=== PATIENT | male | born 2000 | race American Indian/Alaskan Native ===

== ENCOUNTER 2023-05-08 21:25 | Emergency (ER) | payer OTHER ==
[~2023-05-08] VITALS: Ht 182.9 cm; Wt 86.4 kg
[2023-05-08 21:43] VITALS: BP 132/68; TEMP 98.4
[2023-05-08] MEDS ORDERED: HYDROcodone/Acetaminophen 7.5-325 MG TAB PO ONE (22:15)
[2023-05-08] MEDS ORDERED: FLEXERIL 1010 MG/TAB PO (23:13)
[2023-05-08] MEDS ORDERED: Home Cyclobenzaprine 10 MG #2 TABS/PACK PO ONE (23:15)
[2023-05-09 02:28] VITALS: PULSE 66
== END 2023-05-09 02:28 | disposition home or self-care (01) ==
LOC: COL.ER 21:25
DX: S29.9XXA Unspecified injury of thorax, initial encounter (principal); F17.220 Nicotine dependence, chewing tobacco, uncomplicated; X50.1XXA Overexertion from prolonged static or awkward postures, initial encounter; Y93.F2 Activity, caregiving, lifting

== ENCOUNTER 2023-09-12 18:23 | Emergency (ER) | payer OTHER ==
[~2023-09-12] VITALS: Ht 182.9 cm; Wt 95.5 kg
[~2023-09-12 18:23] MED LIST: FLEXERIL 1010 MG/TAB PO
[2023-09-12 19:30] VITALS: BP 145/80; PULSE 105; TEMP 98.2
== END 2023-09-12 19:30 | disposition home or self-care (01) ==
LOC: COL.ER 18:23
DX: S01.111A Laceration without foreign body of right eyelid and periocular area, initial encounter (principal); W50.0XXA Accidental hit or strike by another person, initial encounter; Y93.72 Activity, wrestling